=== PATIENT | male | born 1955 | race Caucasian/White ===

== ENCOUNTER 2022-01-14 09:26 | Inpatient (IN) | payer BC, MEDICARE ==
[2022-01-14] MEDS ORDERED: Sodium Chloride 0.9% 1,000 ML IV ONE (09:40)
[2022-01-14] MEDS ORDERED: Diltiazem 50 MG/10 ML SDV IVPUSH ONE (09:48)
[2022-01-14] MEDS ORDERED: Diltiazem 100 MG in Sodium Chloride 0.9% 100 ML IV SCH (10:00)
[2022-01-14] MEDS ORDERED: Diltiazem 25 MG/5 ML SDV IVPUSH ONE (10:15)
[2022-01-14 10:40] LABS: CARBON DIOXIDE,CO2 25.7 mmol/L (21.0-32.0); POTASSIUM,K 4.1 mmol/L (3.5-5.1)
[2022-01-14] MEDS ORDERED: Iopamidol 755 MG/ML 500 ML Multipack Bottle IVPUSH STA (12:57)
[2022-01-14] MEDS ORDERED: Diltiazem IR 30 MG Tab PO SCH (13:30)
[2022-01-14] MEDS ORDERED: Sodium Chloride 0.9% 10 ML Syringe FLUSH PRN (13:49)
[2022-01-14] MEDS ORDERED: Sodium Chloride 0.9% 2.5 ML Syringe FLUSH PRN (13:49)
[2022-01-14] MEDS ORDERED: Acetaminophen 325 MG Tab PO PRN (13:49)
[2022-01-14] MEDS ORDERED: Ondansetron 4 MG/2 ML SDV IVPUSH PRN (13:49)
[2022-01-14] MEDS ORDERED: Albuterol 8 GM Inhaler INH PRN (13:51)
[2022-01-14] MEDS ORDERED: LORazepam 1 MG Tab PO PRN (13:51)
[2022-01-14] MEDS ORDERED: Flecainide 100 MG Tab PO SCH (18:30)
[2022-01-14] MEDS: Apixaban 5 MG Tab PO SCH (18:34)
[2022-01-14] MEDS: Rosuvastatin 10 MG Tab PO SCH ×2 (18:34→18:57)
[2022-01-14] MEDS ORDERED: Metoprolol Succinate 25 MG Tab.ER PO SCH (18:45)
[2022-01-14] MEDS: FLECAINIDE 100 MG PO SCH (19:17)
[2022-01-14] MEDS: Diltiazem 100 MG in Sodium Chloride 0.9% 100 ML IV SCH (20:12)
[2022-01-14] MEDS: Fluticasone/Salmeterol 100-50 MCG Inhalation Powder 14/Diskus INH SCH (21:11)
[2022-01-14] MEDS: Diltiazem IR 30 MG Tab PO SCH (21:11)
[2022-01-15] MEDS: Diltiazem IR 30 MG Tab PO SCH (03:50)
[2022-01-15] MEDS ORDERED: Sodium Chloride 0.9% 100 ML ONE (05:51)
[2022-01-15] MEDS: Diltiazem 100 MG in Sodium Chloride 0.9% 100 ML IV SCH (05:52)
[2022-01-15 07:09] LABS: CARBON DIOXIDE,CO2 24.9 mmol/L (21.0-32.0)
[2022-01-15] MEDS: Apixaban 5 MG Tab PO SCH (07:25)
[2022-01-15] MEDS ORDERED: Propofol 200 MG/20 ML SDV ONE (08:09)
[2022-01-15] MEDS ORDERED: fentaNYL 100 MCG/2 ML SDV ONE (08:09)
[2022-01-15] MEDS ORDERED: Lactated Ringers 1,000 ML IV ONE (09:00)
[2022-01-15] MEDS: FLECAINIDE 100 MG PO SCH ×2 (09:14→09:19)
[2022-01-15] MEDS: Fluticasone/Salmeterol 100-50 MCG Inhalation Powder 14/Diskus INH SCH (09:38)
[2022-01-15] MEDS ORDERED: ePHEDrine 50 MG/ML SDV ONE (11:43)
[2022-01-15] MEDS ORDERED: Metoprolol Succinate 25 MG Tab.ER PO SCH (17:30)
[2022-01-15] MEDS ORDERED: Rosuvastatin 10 MG Tab PO SCH (21:00)
== END 2022-01-15 14:00 | disposition home or self-care (01) | DRG 201 ==
LOC: EDBD 09:26 → MW.ED 09:26 → MW.ICU 11:53
PROVIDERS: ADMIT Internal Medicine; ATTEND Internal Medicine
PROC: 5A2204Z Restoration of Cardiac Rhythm, Single (ICD-10-PCS; principal; 2022-01-15)
DX: I48.0 Paroxysmal atrial fibrillation (principal); F41.9 Anxiety disorder, unspecified; E78.2 Mixed hyperlipidemia; J41.0 Simple chronic bronchitis; I10 Essential (primary) hypertension; Z20.822 Contact with and (suspected) exposure to COVID-19; R73.03 Prediabetes; E78.00 Pure hypercholesterolemia, unspecified; F17.210 Nicotine dependence, cigarettes, uncomplicated; Z79.01 Long term (current) use of anticoagulants; Z79.899 Other long term (current) drug therapy
CPT/HCPCS: 36415; 71045; 71045-26; 71275; 71275-26; 80048; 80053; 83735; 84484; 85025; 85379; 93005; 96374; 99285-25; A9270-GY; J2704; J3010; J3490; J7030; J7120; Q9967; U0002